=== PATIENT | female | born 1970 | race African-American/Black ===

== ENCOUNTER 2021-10-24 12:39 | Emergency (ER) | payer MEDICAID ==
[~2021-10-24] VITALS: Ht 167.6 cm; Wt 109.4 kg
[2021-10-24] MEDS ORDERED: ASPIRIN 325MG EC TABLET PO ONE (13:30)
[2021-10-24] MEDS ORDERED: KETOROLAC 15MG/ML VIAL IV ONE (13:30)
[2021-10-24] MEDS ORDERED: DIPHENHYDRAMINE 50MG/ML VIAL IV ONE (13:30)
[2021-10-24] MEDS ORDERED: METOCLOPRAMIDE HCL 10MG/2ML VIAL IV ONE (13:30)
[2021-10-24 14:00] LABS: BASOPHILS % 0.4 % (0.0-2.0); EOSINOPHILS % 2.1 % (0.0-5.0); HEMATOCRIT. 35.8 % (36.0-48.0); HEMOGLOBIN. 12.2 g/dL (12.0-16.0); LYMPHOCYTES % 48.1 % (20.0-50.0); MEAN CORPUSCULAR HEMOGLOBIN 30.2 pg (28.0-32.0); MEAN CORPUSCULAR VOLUME 88.4 fL (81.0-99.0); MEAN PLATELET VOLUME 8.7 fl (7.4-10.4); MONOCYTES % 8.1 % (2.0-8.0); NEUTROPHILS % 41.3 % (40.0-76.0); PLATELET 221 x1000/uL (130-400); RED BLOOD CELL COUNT 4.05 mill/uL (4.2-5.4); RED CELL DISTRIBUTION WIDTH 12.8 % (11.6-14.6)
[2021-10-24 14:01] LABS: CHLORIDE 107 mEq/L (98-107)
[2021-10-24 14:04] LABS: PARTIAL THROMBOPLASTIN TIME 24.7 sec (23.4-31.0); PROTHROMBIN TIME 10.7 sec (9.6-11.0)
[2021-10-24 14:07] LABS: HCG SCREEN NEGATIVE
[2021-10-24] MEDS ORDERED: POTASSIUM CHLORIDE 20MEQ TABLET SR PO ONE (14:30)
[2021-10-24 20:00] VITALS: BP 125/68
== END 2021-10-24 22:00 | disposition short-term general hospital (02) ==
LOC: ER 13:12 → ENRESERV 10-25 09:08 → CANRESERV 10-25 09:08 → CANBEDREQ 10-25 09:15
DX: I63.9 Cerebral infarction, unspecified (principal); R29.810 Facial weakness; R53.1 Weakness; Z88.0 Allergy status to penicillin
CPT/HCPCS: 36415; 70450; 70496; 70498; 71045; 80053; 84484; 84703; 85025; 85610; 85730; 86850; 86900; 86901; 87426; 93005; 96374; 96375; 99291; J1200; J1885; J2765